=== PATIENT | female | born 1930 | race Caucasian/White ===

== ENCOUNTER 2016-07-07 12:33 | Emergency (ER) | payer MEDICARE ==
[2016-07-07 13:34] VITALS: BP 181/84; PULSE 93; RESP 18; TEMP 97.1
--- NOTE | 2016-07-07 14:33 | XR ---
EXAMINATION TYPE: XR Hip RT and AP Pelvis DATE OF EXAM: 07/07/2016 COMPARISON: Right hip dated 02/21/2013, prior pelvis 02/16/2013 HISTORY: Right hip pain, trauma TECHNIQUE: A single AP view of the pelvis is obtained. Two views of the right hip are obtained. FINDINGS: There is no acute fracture/dislocation evident in the pelvis. Patient is status post right hip arthroplasty. Heterotopic new bone formation present about the right hip. Bone mineralization is reduced. Degenerative disc changes in the visualized spine. Probable vascular calcifications within the pelvis. IMPRESSION: Postop change. Osteopenia.
--- NOTE | 2016-07-07 15:19 | CT ---
EXAMINATION TYPE: CT hip RT wo con DATE OF EXAM: 07/07/2016 COMPARISON: NONE HISTORY: Right hip pain. Fall injury. CT DLP: 396.1 mGycm Automated exposure control for dose reduction was used. Unenhanced CT of the right hip was performed with bone and soft tissue window settings submitted. FINDINGS: There is right femoral arthroplasty which appears to be in place. There is resultant streak artifact which limits portions of the study. I do not see evidence for acute displaced fracture of the right h ip or visualized portions of the right hemipelvis. Spurring is noted to arise from the greater trocha nteric region. Supratrochanteric soft tissue calcification also noted. IMPRESSION: NO EVIDENCE FOR ACUTE FRACTURE OR DISLOCATION OF THE RIGHT HIP.
--- NOTE | 2016-07-07 15:49 | ED ---
Fall HPI - General Chief Complaint: Fall Stated Complaint: Fall-Hip Pain Time Seen by Provider: 07/07/16 14:16 Source: patient, family, RN notes reviewed Mode of arrival: wheelchair Limitations: no limitations - History of Present Illness Initial Comments: 86-year-old female presents emergency Department chief complaint right hip pain. Patient fell a few days ago maybe a week ago onto her right hip. Patient has been ambulating but states that it hurts. Patient had a prior hip replacement and fracture. Patient denies any paresthesias. Patient has good range of motion of her leg but states that is only painful when she weightbears. Patient has not follow-up with primary care physician or orthopedics. Patient denies any back pain, abdominal pain, bowel bladder and concert retention. Denies any lower extremity paresthesias. - Related Data Home Medications Medication Instructions Recorded Confirmed Aspirin EC [Ecotrin Low Dose] 81 mg PO DAILY 07/07/16 07/07/16 Calcium Carbonate [Calcium] 600 mg PO DAILY 07/07/16 07/07/16 Allergies Allergy/AdvReac Type Severity Reaction Status Date / Time No Known Allergies Allergy Verified 07/07/16 15:41 Review of Systems ROS Statement: Those systems with pertinent positive or pertinent negative responses have been documented in the HPI. ROS Other: All systems not noted in ROS Statement are negative. Past Medical History Past Medical History: No Reported History History of Any Multi-Drug Resistant Organisms: None Reported Past Surgical History: Hysterectomy, Orthopedic Surgery Additional Past Surgical History / Comment(s): right hip repair Past Psychological History: No Psychological Hx Reported Smoking Status: Never smoker Past Alcohol Use History: None Reported Past Drug Use History: None Reported General Exam Limitations: no limitations General appearance: alert, in no apparent distress Head exam: Present: atraumatic, normocephalic, normal inspection Neck exam: Present: normal inspection, full ROM. Absent: tenderness, meningismus, lymphadenopathy Respiratory exam: Present: normal lung sounds bilaterally. Absent: respiratory distress, wheezes, rales, rhonchi, stridor Cardiovascular Exam: Present: regular rate, normal rhythm, normal heart sounds. Absent: systolic murmur, diastolic murmur, rubs, gallop, clicks Extremities exam: Present: other (Right leg full range of motion no discomfort with passive or active range of motion there is no shortening or rotation there is minimal tenderness to the right lateral hip) Back exam: Present: full ROM. Absent: tenderness Skin exam: Present: warm, dry, intact, normal color. Absent: rash Course Vital Signs 07/07/16 13:27 Temperature 97.1 F L Pulse Rate 93 Respiratory 18 Rate Blood Pressure 181/84 O2 Sat by Pulse 96 Oximetry Medical Decision Making - Medical Decision Making 86-year-old female presented for fall, hip pain. There is no acute fracture per radiology reading on x-ray and CT. Disposition Clinical Impression: Fall, Right hip pain Disposition: HOME SELF-CARE Condition: Stable Instructions: Hip Pain (ED) Additional Instructions: Please return to the Emergency Department if symptoms worsen or any other concerns. Referrals: None,Stated [Primary Care Provider] - 1-2 days Time of Disposition: 15:49
== END 2016-07-07 15:54 | disposition home or self-care (01) ==
LOC: EC 12:33
DX: M25.551 Pain in right hip (principal); Z79.82 Long term (current) use of aspirin; Z79.899 Other long term (current) drug therapy; Z96.641 Presence of right artificial hip joint; W18.30XA Fall on same level, unspecified, initial encounter
CPT/HCPCS: 73502; 99284

== ENCOUNTER 2017-06-21 12:52 | Emergency (ER) | payer MEDICARE ==
[2017-06-21 13:02] VITALS: TEMP 97.4
--- NOTE | 2017-06-21 13:37 | ED ---
SOB HPI - General Chief Complaint: Shortness of Breath Stated Complaint: GALINDO, WHEEZING Time Seen by Provider: 06/21/17 13:28 Source: patient, family, RN notes reviewed Mode of arrival: wheelchair Limitations: altered mental status, physical limitation - History of Present Illness Initial Comments: This is a 87-year-old female was brought in for evaluation by family members due to shortness of breath that apparently started last evening. She complained of shortness of breath orthopnea Is Unsure Whether This Is Anxiety Related or Shortness of Breath Also of Note Several Days Ago She Had an Episode Where She Passed out and Had What Appeared to Be Seizure-Like Activity after That Was Short-Lived and She Responded Back to Normal. No Recent Fevers Chills Nausea Vomiting Sweats or Other Symptoms MD Complaint: shortness of breath - Related Data Home Medications Medication Instructions Recorded Confirmed Aspirin EC [Ecotrin Low Dose] 81 mg PO DAILY 07/07/16 06/21/17 Calcium Carbonate [Calcium] 600 mg PO DAILY 07/07/16 06/21/17 Cranberry Fruit Extract [Cranberry] 200 mg PO DAILY 06/21/17 06/21/17 Garlic 1 tab PO DAILY 06/21/17 06/21/17 guaiFENesin [Mucinex] 600 mg PO BID PRN 06/21/17 06/21/17 Allergies Allergy/AdvReac Type Severity Reaction Status Date / Time No Known Allergies Allergy Verified 06/21/17 13:51 Review of Systems ROS Statement: Those systems with pertinent positive or pertinent negative responses have been documented in the HPI. ROS Other: All systems not noted in ROS Statement are negative. Past Medical History Past Medical History: No Reported History Additional Past Medical History / Comment(s): pt has not seen a doctor in years History of Any Multi-Drug Resistant Organisms: None Reported Past Surgical History: Hysterectomy, Orthopedic Surgery Additional Past Surgical History / Comment(s): right hip repair Past Psychological History: No Psychological Hx Reported Smoking Status: Never smoker Past Alcohol Use History: None Reported Past Drug Use History: None Reported General Exam - General Exam Comments Initial Comments: This is a well-developed well-nourished awake alert oriented 3 female Limitations: altered mental status, physical limitation General appearance: alert, in no apparent distress Head exam: Present: atraumatic, normocephalic, normal inspection Eye exam: Present: normal appearance, PERRL, EOMI. Absent: scleral icterus, conjunctival injection, periorbital swelling ENT exam: Present: normal exam, mucous membranes moist Neck exam: Present: normal inspection. Absent: tenderness, meningismus, lymphadenopathy Respiratory exam: Present: normal lung sounds bilaterally. Absent: respiratory distress, wheezes, rales, rhonchi, stridor Cardiovascular Exam: Present: regular rate, normal rhythm, normal heart sounds. Absent: systolic murmur, diastolic murmur, rubs, gallop, clicks GI/Abdominal exam: Present: soft, normal bowel sounds. Absent: distended, tenderness, guarding, rebound, rigid Extremities exam: Present: normal inspection, full ROM, normal capillary refill. Absent: tenderness, pedal edema, joint swelling, calf tenderness Back exam: Present: normal inspection Neurological exam: Present: alert, oriented X3, CN II-XII intact Psychiatric exam: Present: normal affect, normal mood Skin exam: Present: warm, dry, intact, normal color. Absent: rash Course Vital Signs 06/21/17 06/21/17 06/21/17 12:57 15:07 17:10 Temperature 97.4 F L Pulse Rate 81 77 72 Respiratory 20 18 18 Rate Blood Pressure 186/88 189/79 O2 Sat by Pulse 95 96 95 Oximetry - Reevaluation(s) Reevaluation #1: 06/21/17 17:10 Reevaluation patient revealed no change in her status. Reevaluation #2: 06/21/17 17:10 I did discuss case with Dr. Valles who did recommend referral to Dr. Hoover. I did discuss the case with Dr. Girard who is agreed to accept the patient transfer for intervention. The transfer will be ER to ER to [facility]. Reevaluation #3: 06/21/17 17:14 I did discuss the case with the ER physician Dr. Munoz. Medical Decision Making - Medical Decision Making After discussion with multiple physicians and family members patient will be transferred to [facility] for intervention for the bilateral pulmonary emboli with right heart strain. Patient will be transferred by EMS. She will be started on high-dose heparin she is currently hemodynamically stable. I did discuss the case with the patient's family - Lab Data Result diagrams: 06/21/17 13:46 06/21/17 13:46 Lab Results 06/21/17 06/21/17 06/21/17 Range/Units 13:46 13:46 13:46 WBC 9.1 (3.8-10.6) k/uL RBC 4.83 (3.80-5.40) m/uL Hgb 14.6 (11.4-16.0) gm/dL Hct 45.1 (34.0-46.0) % MCV 93.5 (80.0-100.0) fL MCH 30.2 (25.0-35.0) pg MCHC 32.3 (31.0-37.0) g/dL RDW 13.1 (11.5-15.5) % Plt Count 152 (150-450) k/uL Neutrophils % 70 % Lymphocytes % 15 % Monocytes % 9 % Eosinophils % 2 % Basophils % 0 % Neutrophils # 6.4 (1.3-7.7) k/uL Lymphocytes # 1.4 (1.0-4.8) k/uL Monocytes # 0.9 (0-1.0) k/uL Eosinophils # 0.2 (0-0.7) k/uL Basophils # 0.0 (0-0.2) k/uL PT (9.0-12.0) sec INR (<1.2) APTT (22.0-30.0) sec D-Dimer (<0.60) mg/L FEU Sodium 140 (137-145) mmol/L Potassium 5.4 H (3.5-5.1) mmol/L Chloride 104 (98-107) mmol/L Carbon Dioxide 26 (22-30) mmol/L Anion Gap 10 mmol/L BUN 15 (7-17) mg/dL Creatinine 0.76 (0.52-1.04) mg/dL Est GFR (CKD-EPI)AfAm 83 (>60 ml/min/1.73 sqM) Est GFR (CKD-EPI)NonAf 72 (>60 ml/min/1.73 sqM) Glucose 100 H (74-99) mg/dL Calcium 9.4 (8.4-10.2) mg/dL Magnesium 2.1 (1.6-2.3) mg/dL Total Bilirubin 0.7 (0.2-1.3) mg/dL AST 28 (14-36) U/L ALT 26 (9-52) U/L Alkaline Phosphatase 112 (38-126) U/L Total Creatine Kinase 36 (30-135) U/L CK-MB (CK-2) 1.8 (0.0-2.4) ng/mL CK-MB (CK-2) Rel Index 5.0 Troponin I 0.046 H* (0.000-0.034) ng/mL NT-Pro-B Natriuret Pep pg/mL Total Protein 7.2 (6.3-8.2) g/dL Albumin 3.9 (3.5-5.0) g/dL 06/21/17 06/21/17 Range/Units 13:46 13:46 WBC (3.8-10.6) k/uL RBC (3.80-5.40) m/uL Hgb (11.4-16.0) gm/dL Hct (34.0-46.0) % MCV (80.0-100.0) fL MCH (25.0-35.0) pg MCHC (31.0-37.0) g/dL RDW (11.5-15.5) % Plt Count (150-450) k/uL Neutrophils % % Lymphocytes % % Monocytes % % Eosinophils % % Basophils % % Neutrophils # (1.3-7.7) k/uL Lymphocytes # (1.0-4.8) k/uL Monocytes # (0-1.0) k/uL Eosinophils # (0-0.7) k/uL Basophils # (0-0.2) k/uL PT 11.2 (9.0-12.0) sec INR 1.2 H (<1.2) APTT 23.1 (22.0-30.0) sec D-Dimer 18.68 H (<0.60) mg/L FEU Sodium (137-145) mmol/L Potassium (3.5-5.1) mmol/L Chloride (98-107) mmol/L Carbon Dioxide (22-30) mmol/L Anion Gap mmol/L BUN (7-17) mg/dL Creatinine (0.52-1.04) mg/dL Est GFR (CKD-EPI)AfAm (>60 ml/min/1.73 sqM) Est GFR (CKD-EPI)NonAf (>60 ml/min/1.73 sqM) Glucose (74-99) mg/dL Calcium (8.4-10.2) mg/dL Magnesium (1.6-2.3) mg/dL Total Bilirubin (0.2-1.3) mg/dL AST (14-36) U/L ALT (9-52) U/L Alkaline Phosphatase (38-126) U/L Total Creatine Kinase (30-135) U/L CK-MB (CK-2) (0.0-2.4) ng/mL CK-MB (CK-2) Rel Index Troponin I (0.000-0.034) ng/mL NT-Pro-B Natriuret Pep 1810 pg/mL Total Protein (6.3-8.2) g/dL Albumin (3.5-5.0) g/dL - EKG Data -: EKG Interpreted by Me EKG shows normal: sinus rhythm (Sinus rhythm rate 71 appear interval 160 QRS duration 122 daily 6 QTC of 436/473 left bundle-branch block) - Radiology Data Radiology results: report reviewed (I did discuss the findings with the radiologist patient does have a large burden bilaterally of pulmonary emboli right and left main right and left segmental and multiple bilateral subsegmental arteries with evidence of heart strain), image reviewed Critical Care Time Critical Care Time: Yes Critical Care Time: 39 minutes of critical care time which includes history physical labs x-rays multiple reevaluation the patient multiple discussions with the patient family discussion with numerous physicians and documentation the above. Disposition Clinical Impression: Pulmonary embolism on left, Pulmonary embolism on right Disposition: OTHER INSTITUTION NOT DEFINED Condition: Stable Is patient prescribed a controlled substance at d/c from ED?: No Referrals: None,Stated [Primary Care Provider] - 1-2 days - Out of Hospital Transfer - Req. Specs Out of Hospital Transfer - Requested Specifics: Other Emergency Center
[2017-06-21 13:57] LABS: Basophils % (A) 0 %; Eosinophils # (A) 0.2 k/uL (0-0.7); Eosinophils % (A) 2 %; HCT 45.1 % (34.0-46.0); HGB 14.6 gm/dL (11.4-16.0); Lymphocytes # (A) 1.4 k/uL (1.0-4.8); Lymphocytes % (A) 15 %; MCH 30.2 pg (25.0-35.0); MCHC 32.3 g/dL (31.0-37.0); MCV 93.5 fL (80.0-100.0); Mean Platelet Volume 8.4; Monocytes # (A) 0.9 k/uL (0-1.0); Monocytes % (A) 9 %; Neutrophils # (A) 6.4 k/uL (1.3-7.7); Neutrophils % (A) 70 %; Platelet Count 152 k/uL (150-450); RBC 4.83 m/uL (3.80-5.40); RDW 13.1 % (11.5-15.5); WBC 9.1 k/uL (3.8-10.6)
--- NOTE | 2017-06-21 14:25 | CT ---
EXAMINATION TYPE: CT brain wo con DATE OF EXAM: 06/21/2017 COMPARISON: NONE HISTORY: Pain. History dementia. CT DLP: 977.3 mGycm Automated exposure control for dose reduction was used. TECHNIQUE: CT scan of the head is performed without contrast. FINDINGS: There is no acute intracranial hemorrhage or midline shift identified. There is diffuse v entricular and sulcal prominence consistent with diffuse age-related cerebral atrophy. There is low- attenuation in the periventricular white matter consistent with chronic small vessel ischemic change. Old lacunar injuries are seen of the left external capsule and right basal ganglia. These are CSF at tenuated. Age-indeterminate lacunar injury is seen of the right sena measuring 6 mm on series 6 image 14. Atherosclerosis is seen of the intracranial vasculature. Minimal ethmoidal mucosal thickening is identified. The globes are intact and the remaining visualized sinuses are clear. Cerumen is noted within the external auditory canals incidentally. IMPRESSION: 1. Age-indeterminate lacunar injury of the right lateral sena. Other old lacunar injuries are seen of the right basal ganglia on the left external capsule. 2. No acute intracranial hemorrhage or midline shift. 3. Diffuse age-related cerebral atrophy and chronic small vessel ischemic change, likely on the basis of chronic microangiopathy.
--- NOTE | 2017-06-21 14:26 | XR ---
EXAMINATION TYPE: XR chest 2V DATE OF EXAM: 06/21/2017 COMPARISON: 02/20/2013 HISTORY: Wheezing and difficulty breathing TECHNIQUE: Frontal and lateral views of the chest are obtained. FINDINGS: There is no focal air space opacity, pleural effusion, or pneumothorax seen. The cardiac silhouette size is within normal limits. Minimal interstitial prominence is unchanged from the prior 2013. There is diffuse osseous demineralization. Moderate acromio clavicular arthropathy and mild gle nohumeral arthropathy are present. Eventration of the right hemidiaphragm is similar to the prior. IMPRESSION: No acute cardiopulmonary process.
[2017-06-21 14:28] LABS: Creatine Kinase MB 1.8 ng/mL (0.0-2.4); Troponin I 0.046 ng/mL (0.000-0.034)
[2017-06-21 14:33] LABS: INR 1.2 (<1.2); Partial Thromboplastin Time 23.1 sec (22.0-30.0); Prothrombin Time 11.2 sec (9.0-12.0)
[2017-06-21 14:34] LABS: Albumin 3.9 g/dL (3.5-5.0); Calcium 9.4 mg/dL (8.4-10.2); Magnesium 2.1 mg/dL (1.6-2.3); Potassium 5.4 mmol/L (3.5-5.1); Total Bilirubin 0.7 mg/dL (0.2-1.3); Total Protein 7.2 g/dL (6.3-8.2)
[2017-06-21 14:35] LABS: D-Dimer 18.68 mg/L FEU (<0.60)
[2017-06-21] MEDS ORDERED: RX INFO: IV CONTRAST WAS GIVEN 1 EACH MISC MISCELLANE PRN (15:17)
--- NOTE | 2017-06-21 16:37 | CT ---
EXAMINATION TYPE: CT angio chest DATE OF EXAM: 06/21/2017 COMPARISON: NONE HISTORY: GALINDO. CT DLP: 505 mGycm. Automated Exposure Control for Dose Reduction was Utilized. CONTRAST: CTA scan of the thorax is performed with IV Contrast, patient injected with 70ml mL of Isovue 370, pu lmonary embolism protocol. MIP Images are created on CT scanner and reviewed. FINDINGS: LUNGS: There are scattered areas of subsegmental atelectasis throughout the lungs. Geographic groundg lass opacities may be on the basis of fluid overload. No focal consolidation to suggest current pulmo nary infarct is seen given the below findings. No pneumothorax or pleural effusion. The tracheobronch ial tree is patent. MEDIASTINUM: There are large burden of pulmonary emboli beginning within the right and left main pulm onary arteries extending into all segmental branches bilaterally with extent into numerous subsegment al branches. There is evidence of right heart strain with abnormal right ventricular left ventricular ratio above 1, enlargement of main pulmonary artery measuring up to 3.0 cm, and reflux of contrast i nto the inferior vena cava and middle hepatic vein. There are no greater than 1 cm hilar or mediasti nal lymph nodes. Prominent 9 mm short axis precarinal lymph node is present. Ascending thoracic aorta is within normal limits of size. No cardiomegaly or pericardial effusion is seen. OTHER: There is a moderate hiatal hernia appreciated. No axillary adenopathy. Moderate multilevel deg enerative changes of the thoracic spine are noted. IMPRESSION: 1. Large burden pulmonary emboli within the right main, left main, right segmental, left segmental, a nd multiple bilateral subsegmental pulmonary arteries. This results in right heart strain. Findings were relayed to the ordering ER physician Dr. Damico at 1630 on 06/21/[address] Jefferson. 2. Geographic scattered groundglass opacities may be on the basis of cardiogenic or noncardiogenic fl uid overload. Scattered areas of atelectasis are seen without current evidence of pulmonary infarct g iven the above finding. 3. Moderate hiatal hernia.
[2017-06-21] MEDS ORDERED: HEPARIN SODIUM,PORCINE 5,000 UNIT/ML 1 ML VIAL IV STA (16:47)
[2017-06-21] MEDS ORDERED: HEPARIN SODIUM,PORCINE/D5W PMX 25,000 UNIT in DEXTROSE/WATER 1 500ML.BAG IV SCH (17:00)
[2017-06-21] MEDS ORDERED: LORazepam 2 MG/ML INJ IV STA (17:23)
[2017-06-21 17:36] VITALS: BP 164/117; PULSE 80; RESP 16
== END 2017-06-21 18:23 | disposition other institution (70) ==
LOC: EC 12:52
DX: I26.99 Other pulmonary embolism without acute cor pulmonale (principal); Z79.82 Long term (current) use of aspirin; Z79.899 Other long term (current) drug therapy
CPT/HCPCS: 36415; 85379; 83880; 80053; 82550; 82553; 83735; 84484; 85025; 85610; 85730; 71046; 70450; 71275; 99291; 96365; 96376; 96375; J2060; J1644 ×2; Q9967